=== PATIENT | female | born 1990 | race African-American/Black ===

== ENCOUNTER 2018-08-27 06:57 | Emergency (ER) | payer MEDICAID ==
[~2018-08-27] VITALS: Ht 170.2 cm; Wt 59.0 kg
[2018-08-27] MEDS ORDERED: ISENTRESS400 MG PO (09:20)
[2018-08-27] MEDS ORDERED: TRUVADA 200 MG1 EACH PO (09:20)
== END 2018-08-27 10:15 | disposition home or self-care (01) ==
LOC: ED 06:57
DX: T74.21XA Adult sexual abuse, confirmed, initial encounter (principal)
CPT/HCPCS: 36415; 80053; 84703; 85025; 86703; 86707; 87350; 96372; 99284-25; J0696